=== PATIENT | female | born 1975 | race Caucasian/White ===

== ENCOUNTER 2020-09-29 14:21 | Outpatient (CLI) | payer SELFPAY ==
--- NOTE | 2020-09-30 08:05 | Mammography Report ---
BILATERAL DIGITAL SCREENING MAMMOGRAM WITH CAD HISTORY: Screening mammogram TECHNIQUE: Routine digital mammographic imaging performed. This examination was interpreted with nolan moreno benefit of Computer-aided Detection analysis. COMPARISON: None available, this is a baseline mammogram. FINDINGS: Breast Density: heterogeneously dense breast parenchymal pattern which somewhat lessens the sensitivi ty of the evaluation. Digital CC and MLO views demonstrate an asymmetry in the left medial anterior breast, seen on the cc view only. No suspicious findings within the right breast. Biopsy marker in the right superior breas t is noted at site of reported benign biopsy. IMPRESSION: Left anterior medial breast asymmetry for which additional mammographic views (spot CC, rolled CCs, f ull ML) are recommended for further evaluation with possible subsequent targeted ultrasound. BIRADS 0-Incomplete: Needs additional imaging evaluation NOTE: WE WILL RECALL THE PATIENT FOR THIS ADDITIONAL EVALUATION. FURTHER INFORMATION: According to the [employer], yearly mammograms are recommend ed starting at age 40 and continuing as long as a woman is in good health. Clinical Breast Exams shou ld be part of a periodic health exam-about every 3 years for women in their 20s and 30s and every yea r for women 40 and over. Breast self exam is an option for women starting in their 20s. Any breast ch mynor noted on a breast self exam should be reported promptly to the patient's healthcare provider. Br east MRI is recommended for women with an approximately 20-25% or greater lifetime risk of breast can cer, including women with a strong family history of breast or ovarian cancer and women who have been treated for Hodgkin's disease. A negative Mammography report should not discourage follow up or biopsy of a clinically significant f inding and/or abnormality. Dense breast tissue may obscure small neoplasms. The patient will be entered into a reminder system with a target due date for the next screening mamm ogram. Signer Name: Len Jama MD Signed: 09/30/2020 8:01 AM Workstation Name: [id number]
== END 2020-09-29 14:22 | disposition home or self-care (01) ==
LOC: MAMMO 14:21
PROVIDERS: ATTEND Student in an Organized Health Care Education/Training Program
DX: Z12.31 Encounter for screening mammogram for malignant neoplasm of breast (principal)
CPT/HCPCS: 77067

== ENCOUNTER 2021-01-11 10:12 | Outpatient (CLI) | payer OTHER ==
--- NOTE | 2021-01-11 12:57 | Mammography Report ---
LEFT DIGITAL DIAGNOSTIC MAMMOGRAM WITH CAD , 01/11/2021 LEFT LIMITED BREAST ULTRASOUND CLINICAL INFORMATION / INDICATION: Abnormal screening mammogram. Screening recall of the left breast for asymmetry. TECHNIQUE: Digital left mammographic imaging was performed. Spot compression views were obtained. Shaffer ited ultrasound was performed. This examination was interpreted with the benefit of Computer-Aided De tection (CAD) analysis. COMPARISON: Screening mammogram, 09/29/2020 FINDINGS: Breast Density: The breasts are heterogeneously dense, which may obscure small masses. MAMMOGRAPHIC FINDINGS: Spot compression views demonstrate that the focal asymmetry in the medial left breast appears significantly less prominent. No abnormality is seen in the lateral view. ULTRASOUND FINDINGS: Targeted ultrasound evaluation was performed of the area of interest. Sonograp hic evaluation of the medial left breast demonstrates an oval circumscribed mixed echogenic nodule at the 11:00 position 4 cm from the nipple measuring 7 mm. There is a 4 mm cyst at the 11:00 position a nd a 6 mm cyst at the 12:00 position periareolar. No suspicious solid mass or shadowing is visualized . IMPRESSION: 1. Oval circumscribed nodule at the 11:00 position as described which most likely represents a mildly complicated cyst. A six-month follow-up left mammogram and ultrasound is recommended to confirm stab ility. Follow up recommendation: Short term follow up in 6 months. BI-RADS Category 3: Probably Benign. Followup in 6 months. A "normal" or negative report should not discourage follow up or biopsy of a clinically significant f inding. A written summary of these findings will be mailed to the patient. The patient will be entered into a mammography reporting system which will generate a reminder letter for the patient's next appointmen t at the appropriate interval. According to the [employer], yearly mammograms are recommended starting at age 40 and continuing as long as a woman is in good health. Breast MRI is recommended for women with an eduard roximately 20-25% or greater lifetime risk of breast cancer, including women with a strong family his tory of breast or ovarian cancer and women who have been treated for Hodgkin's disease. Signer Name: Viridiana Vazquez MD Signed: 01/11/2021 12:52 PM Workstation Name: [id number]
== END 2021-01-11 10:13 | disposition home or self-care (01) ==
LOC: MAMMO 10:12
PROVIDERS: ATTEND Internal Medicine
DX: N63.22 Unspecified lump in the left breast, upper inner quadrant (principal); N60.02 Solitary cyst of left breast

== ENCOUNTER 2022-01-14 09:07 | Outpatient (CLI) | payer OTHER ==
--- NOTE | 2022-01-17 18:06 | Mammography Report ---
DIGITAL SCREENING MAMMOGRAM WITH CAD, 01/14/2022 CLINICAL INFORMATION / INDICATION: Routine screening mammography. TECHNIQUE: Digital bilateral 2D mammography was obtained in the craniocaudal and mediolateral obliqu e projections. This examination was interpreted with the benefit of Computer-Aided Detection analysis . COMPARISON: 01/11/2021, 09/29/2020 FINDINGS: Breast Density: The breasts are heterogeneously dense, which may obscure small masses. No dominant mass, suspicious calcifications, or architectural distortion in either breast. Right breast biopsy clip is noted at 12:00. Overall, no interval change. IMPRESSION: No mammographic evidence of malignancy. Follow up recommendation: Routine yearly screening mammogram. BI-RADS Category 2: BENIGN. A "normal" or negative report should not discourage follow up or biopsy of a clinically significant f inding. A written summary of these findings will be mailed to the patient. The patient will be entered into a mammography reporting system which will generate a reminder letter for the patient's next appointmen t at the appropriate interval. The [employer] recommends yearly mammograms starting at age 40 and continuing as l valerie as a woman is in good health. Breast MRI is recommended for women with an approximate 20-25% or greater lifetime risk of breast cancer, including women with a strong family history of breast or ova thomas cancer or who have been treated for Hodgkin's disease. Signer Name: Alva Pierce MD Signed: 01/17/2022 6:02 PM Workstation Name: [id number]
== END 2022-01-14 09:08 | disposition home or self-care (01) ==
LOC: MAMMO 09:07
PROVIDERS: ATTEND Internal Medicine
DX: Z12.31 Encounter for screening mammogram for malignant neoplasm of breast (principal)
CPT/HCPCS: 77067